=== PATIENT | female | born 1980 | race Caucasian/White ===

== ENCOUNTER 2016-11-13 17:57 | Emergency (ER) | payer OTHER ==
[~2016-11-13] VITALS: Ht 175.3 cm; Wt 67.3 kg
[~2016-11-13 17:57] MED LIST: ACET325T PO; CLON.5 PO; DOCU1CAP39 PO; IBUP800T23 PO; LEVE250 PO; LEVE500 PO; SUBO2MIS SL; XANA1TAB6 PO; [UNRECOGNIZED DRUG - CODE] SL
[2016-11-13 18:00] VITALS: BP 153/97; PULSE 92; RESP 16; TEMP 98.1; O2SAT 99
[2016-11-13] MEDS ORDERED: clonazePAM 1 MG TAB PO ONE (21:15)
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
[2016-11-13] MEDS ORDERED: IBUPROFEN 800 MG TAB PO ONE (21:45)
[2016-11-13 22:16] LABS: AMPHETAMINE, URINE NEG (NEG); BARBITURATES, URINE NEG (NEG); COCAINE, URINE POS (NEG)
[2016-11-13 22:30] LABS: ANION GAP 7 MEQ/L (5-15); AST (GOT) 8 U/L (15-37); BICARBONATE 29.3 MEQ/L (21.0-32.0); BLOOD UREA NITROGEN 12 MG/DL (7-18); CHLORIDE 103 MEQ/L (98-107); GLOMERULAR FILTRATION RATE 86 ML/MIN (>89); POTASSIUM 3.7 MEQ/L (3.5-5.1); SODIUM (NA) 139 MEQ/L (136-145)
[2016-11-13 22:33] LABS: ALKALINE PHOSPHATASE 62 U/L (45-117); ALT (GPT) 17 U/L (10-53); TOTAL BILIRUBIN ADULT 0.2 MG/DL (0.2-1.0)
[2016-11-13 22:34] LABS: AUTOMATED NEUTROPHIL # 7.2 TH/MM3 (1.8-7.7); BASOPHIL % 0.3 % (0.0-2.0); EOSINOPHIL % 0.4 % (0.0-4.0); HEMATOCRIT 39.4 % (35.0-46.0); HEMO FLAGS DIFF FINAL; LYMPH % 24.1 % (9.0-44.0); LYMPHOCYTE # 2.5 TH/MM3 (1.0-4.8); MEAN CELL VOLUME 82.8 FL (80.0-100.0); MEAN CORPUSCULAR HGB CONC 33.8 % (32.0-36.0); MONO % 4.4 % (0.0-8.0); NEUT % 70.8 % (16.0-70.0); PLATELET COUNT 319 TH/MM3 (150-450); RED BLOOD COUNT 4.75 MIL/MM3 (4.00-5.30); RED CELL DISTRIBUTION WIDTH 13.6 % (11.6-17.2); WHITE BLOOD COUNT 10.2 TH/MM3 (4.0-11.0)
[2016-11-13 23:25] VITALS: BP 105/68; PULSE 67; RESP 18; O2SAT 99
[2016-11-14] MEDS ORDERED: LITH300T3 PO (00:40)
[2016-11-14 02:20] VITALS: BP 108/54; PULSE 73; RESP 18; TEMP 97.1; O2SAT 98
[2016-11-14 06:19] VITALS: BP 105/71; PULSE 63; RESP 18; TEMP 97.1; O2SAT 98
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
[2016-11-14 12:11] VITALS: BP 105/71; PULSE 63; RESP 18; O2SAT 98
== END 2016-11-14 15:02 | disposition home or self-care (01) ==
LOC: NEPJ 17:57 → MERGE 17:57 → NEPJ 11-14 15:02
DX: F31.9 Bipolar disorder, unspecified (principal); F14.10 Cocaine abuse, uncomplicated
CPT/HCPCS: 80053; 80178; 80307; 80320; 84703; 85025; 99283

== ENCOUNTER 2017-11-29 19:51 | Emergency (ER) | payer SELFPAY ==
[~2017-11-29] VITALS: Ht 175.3 cm; Wt 58.2 kg
[2017-11-29 19:51] VITALS: BP 108/80; PULSE 86; RESP 16; TEMP 98.4; O2SAT 100
[~2017-11-29 19:51] MED LIST changes: -ACET325T PO; +IBUP1TAB7 PO; -IBUP800T23 PO; +LITH300T3 PO
[2017-11-29] MEDS ORDERED: BUPR1SUB5 SL (20:03)
[2017-11-29] MEDS ORDERED: LEVE500 PO ×2 (20:03→23:20)
[2017-11-29] MEDS ORDERED: KLON2TAB PO (20:03)
[2017-11-29] MEDS ORDERED: DEXTROSE 50% IN WATER 50 ML VIAL(D50) IV PUSH ONE ×2 (21:00→23:15)
[2017-11-29] MEDS ORDERED: SODIUM CHLOR 0.9% 1000 ML INJ 1,000 ML IV SCH (21:00)
[2017-11-29] MEDS ORDERED: levETIRAcetam INJ 100 ML IV ONE (21:00)
--- NOTE | 2017-11-29 21:04 | PD ---
HPI Chief Complaint: Seizure Time Seen by Provider: 20:40 Travel History International Travel<30 days: No Contact w/Intl Traveler<30days: No Traveled to known affect area: No History of Present Illness HPI 36-year-old female complains of facial pain, headache, seizure. Patient has history of seizure and was on Keppra 500 mg twice a day. Patient states that she ran out of her medication 4 days ago. Patient has history of bipolar disorder. Patient was on lithium 300 mg twice a day and Klonopin 2 mg twice a day. Patient states that she ran out of her medications also. Patient is taking Subutex daily. Patient has history of substance abuse in the past. Patient states that she has not been abusing drugs recently. Patient states that she was with a friend when this happened this evening. The friend reported to EMS that the seizure was generalized tonic clonic. The friend reported to EMS that the seizure episode lasted about 3 minutes. Patient injured her face during the seizure episode. Patient states that she had aching headache and sharp pain to the face. Patient denies any visual change. Patient denies any neck pain. Patient denies any chest pain or shortness of breath. Patient denies abdominal pain. Patient denies any focal weakness or numbness of extremity. Patient denies any other injury. Patient states that she had a seizure episode about a month ago also. PFSH Past Medical History Arthritis: No Asthma: No Autoimmune Disease: No Bipolar Disorder: Yes Anxiety: Yes Depression: Yes Heart Rhythm Problems: No Cancer: No Cardiovascular Problems: No High Cholesterol: No Chemotherapy: No Chest Pain: No Congestive Heart Failure: No COPD: No Cerebrovascular Accident: No Diabetes: No Diminished Hearing: No Endocrine: No GERD: No Genitourinary: No Hiatal Hernia: No Herniated Disk: Yes (C5C6 disc protrusion) Hypertension: Yes Immune Disorder: No Kidney Stones: No Musculoskeletal: Yes Neurologic: Yes Psychiatric: Yes (PTSD) Reproductive: Yes (OVARIAN CYSTS, OOPHORECTOMY) Respiratory: No Migraines: Yes Radiation Therapy: No Renal Failure: No Seizures: Yes Sickle Cell Disease: No Sleep Apnea: No Thyroid Disease: No Ulcer: No Influenza Vaccination: No ?: Not LMP: 11/26/17 : 0 Para: 0 Ovarian Cysts: Yes Past Surgical History Abdominal Surgery: No AICD: No Arteriovenous Shunt: No Cardiac Surgery: No Ear Surgery: No Endocrine Surgery: No Eye Surgery: No Genitourinary Surgery: No Gynecologic Surgery: Yes (oophorectomy) Insulin Pump: No Joint Replacement: No Neurologic Surgery: Yes (UNKNOWN CRANIAL SX A CHILD) Oral Surgery: No Pacemaker: No Thoracic Surgery: No Other Surgery: Yes Social History Alcohol Use: No Tobacco Use: Yes (10/26 PPD) Substance Use: Yes (Methadone: QUIT 2011, QUIT COCAINE: 2016) Allergies-Medications (Allergen,Severity, Reaction): Coded Allergies: acetaminophen (Unverified Allergy, Severe, ANAPHALAXIS, 11/29/17) phenytoin (Unverified Allergy, Severe, ANAPHALAXIS, 11/29/17) propoxyphene (Unverified Allergy, Severe, ANAPHALAXIS, 11/29/17) meperidine (Unverified Allergy, Unknown, 11/29/17) Reported Meds & Prescriptions Reported Meds & Active Scripts Active [place] Carbonate 300 Mg Tab 300 Mg PO BID Keppra (Levetiracetam) 500 Mg Tab 500 Mg PO BID Reported Keppra (Levetiracetam) 500 Mg Tab 500 Mg PO BID Klonopin (Clonazepam) 2 Mg Tab 2 Mg PO BID Buprenorphine-Naloxone 2-0.5 Mg Subl 0.5 Mg SL DAILY [place] Carbonate 300 Mg Tab 300 Mg PO BID Review of Systems General / Constitutional: No: Fever Eyes: No: Visual changes HENT: Positive: Headaches Cardiovascular: No: Chest Pain or Discomfort Respiratory: No: Shortness of Breath Gastrointestinal: No: Abdominal Pain Genitourinary: No: Dysuria Skin: No Rash Neurologic: Positive: Seizures, No: Weakness Psychiatric: No: Depression Endocrine: No: Polydipsia Hematologic/Lymphatic: No: Easy Bruising Physical Exam Narrative GENERAL: Well-nourished, well-developed patient. SKIN: Focused skin assessment warm/dry. HEAD: Normocephalic. Patient has multiple ecchymosis swelling tenderness over the facial area. EYES: No scleral icterus. No injection or drainage. Pupils 2 mm equal reactive. NECK: Supple, trachea midline. No JVD or lymphadenopathy. No neck tenderness. CARDIOVASCULAR: Regular rate and rhythm without murmurs, gallops, or rubs. RESPIRATORY: Breath sounds equal bilaterally. No accessory muscle use. GASTROINTESTINAL: Abdomen soft, non-tender, nondistended. MUSCULOSKELETAL: No cyanosis, or edema. BACK: Nontender without obvious deformity. No CVA tenderness. Neurologic exam: Patient awake and alert oriented 3. No obvious focal neurological deficit. Data Data Last Documented VS Vital Signs Date Time Temp Pulse Resp B/P (MAP) Pulse Ox O2 Delivery O2 Flow Rate FiO2 11/29/17 19:51 86 100 Room Air 11/29/17 19:51 98.4 16 108/80 (89) Orders Orders Dextrose 50% In Maxine (Vial) Inj (D50w (Vi (11/29/17 21:00) Sodium Chlor 0.9% 1000 Ml Inj (Ns 1000 M (11/29/17 21:00) Levetiracetam Inj (Keppra Inj) (11/29/17 21:00) Complete Blood Count With Diff (11/29/17 20:52) Basic Metabolic Panel (Bmp) (11/29/17 20:52) Prothrombin Time / Inr (Pt) (11/29/17 20:52) Act Partial Throm Time (Ptt) (11/29/17 20:52) Thyroid Stimulating Hormone (11/29/17 20:52) Ct Brain W/O Iv Contrast(Rout) (11/29/17 20:52) Iv Access Insert/Monitor (11/29/17 20:52) Ecg Monitoring (11/29/17 20:52) Oximetry (11/29/17 20:52) Drug Screen, Random Urine (11/29/17 20:52) Alcohol (Ethanol) (11/29/17 20:52) Ct Facial Bones W/O Iv Cont (11/29/17 20:52) Dextrose 50% In Maxine (Vial) Inj (D50w (Vi (11/29/17 23:15) Ibuprofen (Motrin) (11/29/17 23:30) Ed Discharge Order (11/29/17 23:22) Labs Laboratory Tests Test 11/29/17 19:50 11/29/17 20:55 White Blood Count 8.9 TH/MM3 Red Blood Count 4.41 MIL/MM3 Hemoglobin 12.0 GM/DL Hematocrit 37.0 % Mean Corpuscular Volume 83.9 FL Mean Corpuscular Hemoglobin 27.2 PG Mean Corpuscular Hemoglobin Concent 32.4 % Red Cell Distribution Width 12.7 % Platelet Count 318 TH/MM3 Mean Platelet Volume 8.3 FL Neutrophils (%) (Auto) 69.1 % Lymphocytes (%) (Auto) 21.3 % Monocytes (%) (Auto) 7.4 % Eosinophils (%) (Auto) 1.3 % Basophils (%) (Auto) 0.9 % Neutrophils # (Auto) 6.1 TH/MM3 Lymphocytes # (Auto) 1.9 TH/MM3 Monocytes # (Auto) 0.7 TH/MM3 Eosinophils # (Auto) 0.1 TH/MM3 Basophils # (Auto) 0.1 TH/MM3 CBC Comment DIFF FINAL Differential Comment Prothrombin Time 10.8 SEC Prothromb Time International Ratio 1.1 RATIO Activated Partial Thromboplast Time 21.1 SEC Blood Urea Nitrogen 11 MG/DL Creatinine 0.69 MG/DL Random Glucose 54 MG/DL Calcium Level 8.6 MG/DL Sodium Level 140 MEQ/L Potassium Level 3.9 MEQ/L Chloride Level 105 MEQ/L Carbon Dioxide Level 26.8 MEQ/L Anion Gap 8 MEQ/L Estimat Glomerular Filtration Rate 97 ML/MIN Thyroid Stimulating Hormone 3rd Gen 1.980 uIU/ML Ethyl Alcohol Level LESS THAN 3 MG/DL Urine Opiates Screen NEG Urine Barbiturates Screen NEG Urine Amphetamines Screen POS Urine Benzodiazepines Screen POS Urine Cocaine Screen NEG Urine Cannabinoids Screen NEG MDM Medical Decision Making Medical Screen Exam Complete: Yes Emergency Medical Condition: Yes Interpretation(s) Last Impressions Maxillofacial CT 11/29/172051 Signed Impressions: Service Date/Time: Wednesday, November 29, 2017 21:16 - CONCLUSION: No acute bony fracture seen involving the facial bones. Ronny Lew MD Head CT 11/29/172051 Signed Impressions: Service Date/Time: Wednesday, November 29, 2017 21:16 - CONCLUSION: Stable and unremarkable CT scan of the brain compared to the prior examination. No new or significant changes. Ronny Lew MD 11:10 PM. CBC within normal limit. BMP within normal limit. Glucose 54. Urine drug screen positive for amphetamines and benzodiazepine. Differential Diagnosis Differential diagnosis including breakthrough seizures, electrolyte abnormality , noncompliance, head injury, facial injuries. Narrative Course 36-year-old female with breakthrough seizure, facial injury. History of seizure and ran out of medication 4 days ago. Keppra 1 g IV given. D50 25 mL IV given. Patient also given orange juice. Diagnosis Primary Impression: Breakthrough seizure Additional Impressions: Substance abuse Noncompliance Facial contusion Qualified Codes: S00.83XA - Contusion of other part of head, initial encounter Closed head injury Qualified Codes: S09.90XA - Unspecified injury of head, initial encounter Hypoglycemia Patient Instructions: General Instructions Additional Instructions: Advised patient to Keppra as directed. Avoid substance abuse. Follow-up with local physician and [facility]. Advised patient to eat frequent meals. Ibuprofen as needed for pain. Head trauma instructions given. Med/Other Pt SpecificInfo: Prescription(s) given Scripts [place] Carbonate ([place] Carbonate) 300 Mg Tab 300 MG PO BID, #60 TAB 0 Refills Prov: Adan Parsons MD 11/29/17 Levetiracetam (Keppra) 500 Mg Tab 500 MG PO BID for Control Seizures, #60 TAB 0 Refills Prov: Adan Parsons MD 11/29/17 Disposition: 01 DISCHARGE HOME Condition: Stable Adan Parsons MD Nov 29, 2017 21:04
[2017-11-29 21:17] LABS: AUTOMATED NEUTROPHIL # 6.1 TH/MM3 (1.8-7.7); BASOPHIL # 0.1 TH/MM3 (0-0.2); BASOPHIL % 0.9 % (0.0-2.0); EOSINOPHIL # 0.1 TH/MM3 (0-0.4); EOSINOPHIL % 1.3 % (0.0-4.0); LYMPH % 21.3 % (9.0-44.0); LYMPHOCYTE # 1.9 TH/MM3 (1.0-4.8); MEAN CELL VOLUME 83.9 FL (80.0-100.0); MEAN CORPUSCULAR HEMOGLOBIN 27.2 PG (27.0-34.0); MEAN CORPUSCULAR HGB CONC 32.4 % (32.0-36.0); MEAN PLATELET VOLUME 8.3 FL (7.0-11.0); MONO % 7.4 % (0.0-8.0); MONOCYTE # 0.7 TH/MM3 (0-0.9); NEUT % 69.1 % (16.0-70.0); PLATELET COUNT 318 TH/MM3 (150-450); RED BLOOD COUNT 4.41 MIL/MM3 (4.00-5.30); RED CELL DISTRIBUTION WIDTH 12.7 % (11.6-17.2); WHITE BLOOD COUNT 8.9 TH/MM3 (4.0-11.0)
--- NOTE | 2017-11-29 21:36 | RADRPT ---
EXAM DATE/TIME: 11/29/2017 21:16 [facility] COMPARISON: CT BRAIN W/O CONTRAST, September 27, 2016, 3:57. INDICATIONS : Trauma. Seizure. RADIATION DOSE: 49.36 CTDIvol (mGy) MEDICAL HISTORY : Seizures. SURGICAL HISTORY : Craniotomy. ENCOUNTER: Initial ACUITY: 1 day PAIN SCALE: 7/10 LOCATION: Bilateral cranial TECHNIQUE: Multiple contiguous axial images were obtained of the head. Using automated exposure control and adj ustment of the mA and/or kV according to patient size, radiation dose was kept as low as reasonably a chievable to obtain optimal diagnostic quality images. DICOM format image data is available electro nically for review and comparison. FINDINGS: CEREBRUM: The ventricles are normal for age. No evidence of midline shift, mass lesion, hemorrhage or acute in farction. No extra-axial fluid collections are seen. POSTERIOR FOSSA: The cerebellum and brainstem are intact. The 4th ventricle is midline. The cerebellopontine angle i s unremarkable. EXTRACRANIAL: The visualized portion of the orbits is intact. SKULL: Chronic changes of the calvarium . Stable compared to the prior exam 2015. CONCLUSION: Stable and unremarkable CT scan of the brain compared to the prior examination. No new or significant changes. Ronny Lew MD on November 29, 2017 at 21:32 Board Certified Radiologist. This report was verified electronically.
[2017-11-29 21:37] LABS: CHLORIDE 105 MEQ/L (98-107); SODIUM (NA) 140 MEQ/L (136-145)
--- NOTE | 2017-11-29 21:38 | RADRPT ---
EXAM DATE/TIME: 11/29/2017 21:16 [facility] COMPARISON: No previous studies available for comparison. INDICATIONS : Trauma. Fall. Seizure. RADIATION DOSE: 34.86 CTDIvol (mGy) MEDICAL HISTORY : Seizures. SURGICAL HISTORY : Craniotomy. ENCOUNTER: Initial ACUITY: 1 day PAIN SCORE: 7/10 LOCATION: Bilateral facial TECHNIQUE: Volumetric scanning of the facial bones was performed. Using automated exposure control and adjustme nt of the mA and/or kV according to patient size, radiation dose was kept as low as reasonably achiev able to obtain optimal diagnostic quality images. DICOM format image data is available electronicCrystal IS y for review and comparison. FINDINGS: ORBITS: The orbital and infraorbital osseous structures are intact. The retroconal structures have a normal configuration. No radiopaque foreign bodies are seen. NASAL BONE: The nasal bone and maxillary spine are intact ZYGOMATIC ARCHES: Symmetric without evidence of fracture. SINUSES: The maxillary, ethmoid and frontal sinuses are intact. No air-fluid levels seen. NASAL CAVITY: There is nasal septal deviation to the right. SOFT TISSUES: There is chronic deformity involving the frontal calvarium with sutures from previous surgery. INTRACRANIAL: No intracranial air seen. CRIBIFORM PLATE: Grossly intact. CONCLUSION: No acute bony fracture seen involving the facial bones. Ronny Lew MD on November 29, 2017 at 21:34 Board Certified Radiologist. This report was verified electronically.
[2017-11-29 21:40] LABS: CALCIUM 8.6 MG/DL (8.5-10.1)
[2017-11-29 21:41] LABS: BICARBONATE 26.8 MEQ/L (21.0-32.0); BLOOD UREA NITROGEN 11 MG/DL (7-18); GLUCOSE,RANDOM 54 MG/DL (74-106)
[2017-11-29 21:43] LABS: INTERNATIONAL NORMALIZED RATIO 1.1 RATIO; PROTHROMBIN TIME - PATIENT 10.8 SEC (9.8-11.6)
[2017-11-29 21:44] LABS: CREATININE 0.69 MG/DL (0.50-1.00); GLOMERULAR FILTRATION RATE 97 ML/MIN (>89)
[2017-11-29 23:00] VITALS: BP 110/72; PULSE 82; O2SAT 99
[2017-11-29] MEDS ORDERED: LITH300T3 PO (23:20)
[2017-11-29] MEDS ORDERED: IBUPROFEN 600 MG TAB PO ONE (23:30)
== END 2017-11-30 00:01 | disposition home or self-care (01) ==
LOC: PHED 19:51
DX: R56.9 Unspecified convulsions (principal); S00.83XA Contusion of other part of head, initial encounter; S09.90XA Unspecified injury of head, initial encounter; F15.10 Other stimulant abuse, uncomplicated; E16.2 Hypoglycemia, unspecified; F31.9 Bipolar disorder, unspecified; I10 Essential (primary) hypertension; F43.10 Post-traumatic stress disorder, unspecified; F17.210 Nicotine dependence, cigarettes, uncomplicated; Z91.19 Patient's noncompliance with other medical treatment and regimen
CPT/HCPCS: 70450; 70486; 80048; 80307; 84443; 85025; 85610; 85730; 96361; 96365; 96375; 99284; J1953; J7030